=== PATIENT | male | born 1960 | race Caucasian/White ===

== ENCOUNTER → 2018-05-05 | Day surgery (SDC) | payer BC ==
[~2018-05-05] MED LIST: ADVIL200 M1 PO; FENTANYL CITRATE/PF 100MCG/2 ML INJ ONE; LIDOCAINE HCL 2% 30 ML TUBE ONE; LIDOCAINE HCL 2% LOCAL INJ 5 ML SDV VIAL INJ ONE; LIDOCAINE HCL 4% 50 ML BTL ONE; MIDAZOLAM HCL 2 MG/2 ML VIAL ONE; OXYMETAZOLINE HCL 0.05% NAS 1 SPRAY BTL ONE; PRILOSEC OTC20 MG PO; PROPOFOL IV EMULSION 10 MG/ML 20 ML VIAL IV ONE; SEVOFLURANE INHAL SOLN 250 ML PEN BTL INH ONE
--- NOTE | 2018-05-05 12:28 | Operative Report ---
DATE OF PROCEDURE: May 05, 2018 PROCEDURE: Bronchoscopy, diagnostic, and endobronchial biopsy. PREPROCEDURE DIAGNOSIS: Lung cancer. POSTPROCEDURE DIAGNOSIS: Lung cancer. ESTIMATED BLOOD LOSS: 5 mL. SEDATION USED: Please see anesthesia notes for further details. DETAILS OF PROCEDURE: The patient's airway was accessed through LMA. The bronchoscope was passed to the vocal cords. The vocal cords appear healthy. No trauma was noted. No polyps were noted. Subsequently, the bronchoscope was advanced into the tracheostomy, and the bronchoscope was advanced to the trachea. The airway appeared stable. Subsequently, the bronchoscope was advanced to near the mariia and into the right mainstem. At the entry of the right mainstem at the takeoff of the right upper lobe, an obstructing mass was found, which appeared polypoid and erythematous. The bronchoscope was able to advance with pressure through the narrow opening beneath the mass, and the lower mainstem bronchi were accessed and showed evidence of further mass noted along the wall of the right mainstem extending up to the lower lobes. Subsequently, the forceps were then advanced through the bronchoscope. Biopsies were obtained from the mass. At least 10 biopsies were obtained from the right mainstem mass. Minimal bleeding was noted, which was controlled with saline wash. These were sent for pathology. The patient tolerated the procedure well. Thank you for involving us in the care of your patient. Job#: [id number]
== END | disposition home or self-care (01) ==
LOC: ENDO 07:40
PROVIDERS: ATTEND Internal Medicine
DX: C34.01 Malignant neoplasm of right main bronchus (principal); C38.3 Malignant neoplasm of mediastinum, part unspecified; Z93.0 Tracheostomy status; J44.9 Chronic obstructive pulmonary disease, unspecified; K21.9 Gastro-esophageal reflux disease without esophagitis; F17.210 Nicotine dependence, cigarettes, uncomplicated; Z80.1 Family history of malignant neoplasm of trachea, bronchus and lung
CPT/HCPCS: 31625; 88305; 88342; 93005; J2001; J2250; 88112